=== PATIENT | male | born 1950 | race African-American/Black ===

== ENCOUNTER 2016-08-22 05:02 | Inpatient (IN) | payer MEDICARE, MEDICAID ==
[~2016-08-22] VITALS: Ht 185.4 cm; Wt 85.3 kg
[~2016-08-22 05:02] MED LIST: AMLO10TA4 PO; GLYB5TAB7 PO; METF1000 PO
[2016-08-22] MEDS ORDERED: FUROSEMIDE 40MG/4ML VIAL IV STA (07:13)
[2016-08-22 07:26] LABS: BASOPHILS % 0.6 % (0.0-2.0); EOSINOPHILS % 3.6 % (0.0-5.0); HEMATOCRIT. 25.2 % (42.0-52.0); HEMOGLOBIN. 8.1 g/dL (14.0-18.0); LYMPHOCYTES % 20.1 % (20.0-50.0); MEAN CORPUSCULAR VOLUME 84.3 fL (80.0-94.0); MEAN PLATELET VOLUME 8.5 fl (7.4-10.4); MONOCYTES % 8.6 % (2.0-8.0); NEUTROPHILS % 67.1 % (40.0-76.0); PLATELET 80 x1000/uL (130-400); RED BLOOD CELL COUNT 2.99 mill/uL (4.7-6.1); RED CELL DISTRIBUTION WIDTH 18.6 % (11.6-14.6)
[2016-08-22 07:36] LABS: INR 1.2; PARTIAL THROMBOPLASTIN TIME 29.7 sec (24.0-34.0); PROTHROMBIN TIME 12.8 sec
[2016-08-22 07:38] LABS: CARBON DIOXIDE 23 mEq/L (21-32); CHLORIDE 117 mEq/L (98-107)
[2016-08-22 07:43] LABS: CREATINE KINASE 134 IU/L (39-308); CREATINE KINASE MB FRACTION 2.8 ng/mL (0.5-3.6); TROPONIN I < 0.02 ng/mL (0.00-0.04)
[2016-08-22] MEDS ORDERED: ONDANSETRON HCL 4MG/2ML VIAL IV PRN (09:30)
[2016-08-22] MEDS ORDERED: ACETAMINOPHEN 325MG TABLET PO PRN (09:30)
[2016-08-22] MEDS ORDERED: IPRATROPIUM/ALBUTEROL 0.5-3(2.5)MG/3ML NEB INH PRN (09:30)
[2016-08-22] MEDS ORDERED: DEXTROSE 50% WATER 50ML SYRINGE IV PRN (09:30)
[2016-08-22] MEDS ORDERED: DOCUSATE SODIUM 100MG CAPSULE PO PRN (09:30)
[2016-08-22 09:54] LABS: CLARITY URINE CLOUDY (CLEAR); COLOR URINE YELLOW (YELLOW); GLUCOSE URINE NEGATIVE (NEGATIVE); KETONES URINE NEGATIVE (NEGATIVE); LEUKOCYTE ESTERASE URINE 3+ (NEGATIVE); NITRITE URINE POSITIVE (NEGATIVE); OCCULT BLOOD URINE 2+ (NEGATIVE); PROTEIN URINE 3+ (NEGATIVE); SPECIFIC GRAVITY URINE 1.019 (1.005-1.030); UROBILINOGEN URINE 0.2 E.U./dL (0.2-1.0)
[2016-08-22 10:16] LABS: ETHANOL BLOOD < 10 mg/dL; TOTAL IRON BINDING CAPACITY 287 ug/dL (250-450)
[2016-08-22 10:19] LABS: *AMPHETAMINES SCREEN URINE NEGATIVE (NEGATIVE); *BARBITURATES SCREEN URINE NEGATIVE (NEGATIVE); *BENZODIAZEPINES SCREEN URINE NEGATIVE (NEGATIVE); *COCAINE SCREEN URINE NEGATIVE (NEGATIVE); CANNABINOID URINE SCREEN NEGATIVE (NEGATIVE); METHADONE URINE SCREEN NEGATIVE (NEGATIVE); OPIATES URINE SCREEN PRESUMTIVE POSITIVE (NEGATIVE); PHENCYCLIDINE URINE SCREEN NEGATIVE (NEGATIVE)
[2016-08-22 10:57] VITALS: BP 162/91
[2016-08-22 11:06] VITALS: BP 162/91
[2016-08-22] MEDS ORDERED: COR12 PO (11:37)
[2016-08-22] MEDS ORDERED: CLOP75TA33 PO (11:38)
[2016-08-22] MEDS ORDERED: ISOS60TA4 PO (11:39)
[2016-08-22] MEDS ORDERED: ZOLP10TA6 PO (11:41)
[2016-08-22] MEDS ORDERED: ASPI-1159 PO (11:42)
[2016-08-22] MEDS ORDERED: LOSA100T14 PO (11:43)
[2016-08-22] MEDS ORDERED: FERR-63 PO (11:44)
[2016-08-22] MEDS ORDERED: TRAMADOL 50MG TABLET PO SCH (11:45)
[2016-08-22] MEDS ORDERED: ROSU20TA PO (11:45)
[2016-08-22] MEDS ORDERED: LINA5TAB PO (11:46)
[2016-08-22] MEDS ORDERED: SPIR25TA4 PO (11:47)
[2016-08-22] MEDS ORDERED: TRAM50TA3 PO (11:47)
[2016-08-22] MEDS ORDERED: linaclotide PO (11:49)
[2016-08-22 11:50] LABS: HEPATITIS B SURFACE ANTIGEN NEGATIVE
[2016-08-22 12:18] LABS: HEPATITIS B CORE AB IGM NEGATIVE
[2016-08-22 12:19] LABS: HEPATITIS A AB IGM NEGATIVE (NEGATIVE)
[2016-08-22 12:26] LABS: FERRITIN 78 ng/mL (22-322)
[2016-08-22] MEDS: CLOPIDOGREL 75MG TABLET PO SCH (12:30)
[2016-08-22] MEDS: ASPIRIN 81MG EC TABLET PO SCH ×2 (12:30→13:31)
[2016-08-22] MEDS: BLOOD SUGAR DIAGNOSTIC STRIP TEST SCH ×3 (13:02→21:17)
[2016-08-22] MEDS: INSULIN LISPRO 100 UNITS/ML SUBCUT SCH ×3 (13:10→21:00)
[2016-08-22] MEDS: AMLODIPINE 10MG TABLET PO SCH (13:30)
[2016-08-22] MEDS: LINAGLIPTIN 5MG TABLET PO SCH (13:30)
[2016-08-22] MEDS: TRAMADOL 50MG TABLET PO PRN (13:31)
[2016-08-22] MEDS: FERROUS SULFATE 325MG TABLET PO SCH ×2 (13:31→16:27)
[2016-08-22] MEDS: SENNOSIDES/DOCUSATE SOD 8.6/50MG TABLET PO SCH (13:31)
[2016-08-22] MEDS: LOSARTAN POTASSIUM 100 MG TABLET PO SCH (13:31)
[2016-08-22 16:00] VITALS: BP 160/87
[2016-08-22] MEDS: FUROSEMIDE 40MG/4ML VIAL IVP SCH (16:27)
[2016-08-22] MEDS: CARVEDILOL 12.5MG TABLET PO SCH (16:28)
[2016-08-22] MEDS: LINZESS 145 MCG CAPSULE PO SCH (16:28)
[2016-08-22] MEDS: ISOSORBIDE MONONITRATE 60MG TABLET SR 24HR PO SCH (16:28)
[2016-08-22] MEDS: CRESTOR 20 MG PO SCH (16:29)
[2016-08-22] MEDS: IPRATROPIUM/ALBUTEROL 0.5-3(2.5)MG/3ML NEB INH SCH ×2 (16:35→20:27)
[2016-08-22] MEDS ORDERED: MEDICATION NOT ON FORMULARY EA (Zolpidem Tartrate 10 MG) PO SCH (17:00)
[2016-08-22] MEDS ORDERED: MEDICATION NOT ON FORMULARY EA (Zolpidem Tartrate 10 MG) PO PRN (17:00)
[2016-08-22] MEDS ORDERED: FERROUS SULFATE 325MG TABLET PO SCH (17:00)
[2016-08-22] MEDS ORDERED: SPIRONOLACTONE 25MG TABLET PO SCH (17:15)
[2016-08-22 20:00] VITALS: BP 176/98
[2016-08-22] MEDS ORDERED: ZOLPIDEM TARTRATE 5MG TABLET PO PRN ×2 (21:00)
[2016-08-22] MEDS: FAMOTIDINE 20MG TABLET PO SCH (21:21)
[2016-08-22] MEDS: LEVOFLOXACIN 250MG TABLET PO SCH (23:11)
[2016-08-23] VITALS (10 sets, daily range): BP systolic 152–188; BP diastolic 84–112
[2016-08-23] MEDS: TRAMADOL 50MG TABLET PO PRN (00:32)
[2016-08-23] MEDS: ENALAPRIL 2.5MG/2ML VIAL 2ML IV PRN ×2 (00:33→13:16)
[2016-08-23] MEDS: IPRATROPIUM/ALBUTEROL 0.5-3(2.5)MG/3ML NEB INH SCH ×4 (01:43→21:34)
[2016-08-23] MEDS: BLOOD SUGAR DIAGNOSTIC STRIP TEST SCH ×4 (06:02→21:33)
[2016-08-23 06:53] LABS: BASOPHILS % 0.4 % (0.0-2.0); EOSINOPHILS % 2.1 % (0.0-5.0); HEMATOCRIT. 24.2 % (42.0-52.0); HEMOGLOBIN. 7.7 g/dL (14.0-18.0); MEAN CORPUSCULAR HEMOGLOBIN 27.4 pg (28.0-32.0); MEAN CORPUSCULAR VOLUME 85.5 fL (80.0-94.0); MEAN PLATELET VOLUME 9.9 fl (7.4-10.4); MONOCYTES % 9.1 % (2.0-8.0); NEUTROPHILS % 71.4 % (40.0-76.0); PLATELET 75 x1000/uL (130-400); RED BLOOD CELL COUNT 2.83 mill/uL (4.7-6.1); RED CELL DISTRIBUTION WIDTH 18.6 % (11.6-14.6)
[2016-08-23 07:22] LABS: PHOSPHORUS 3.7 mg/dL (2.5-4.9); T4 FREE 1.44 ng/dL (0.76-1.46)
[2016-08-23] MEDS: INSULIN LISPRO 100 UNITS/ML SUBCUT SCH ×4 (07:22→21:00)
[2016-08-23] MEDS: ASPIRIN 81MG EC TABLET PO SCH (07:29)
[2016-08-23] MEDS: CLOPIDOGREL 75MG TABLET PO SCH (07:30)
[2016-08-23] MEDS ORDERED: SODIUM POLYSTYRENE SULFONATE 15 G/60 ML BOT PO NR (07:45)
[2016-08-23] MEDS: LINAGLIPTIN 5MG TABLET PO SCH (08:54)
[2016-08-23] MEDS: FUROSEMIDE 40MG/4ML VIAL IVP SCH ×2 (08:54→17:03)
[2016-08-23] MEDS: LOSARTAN POTASSIUM 100 MG TABLET PO SCH (08:54)
[2016-08-23] MEDS: FERROUS SULFATE 325MG TABLET PO SCH ×3 (08:54→18:29)
[2016-08-23] MEDS: SENNOSIDES/DOCUSATE SOD 8.6/50MG TABLET PO SCH (08:54)
[2016-08-23] MEDS: CARVEDILOL 12.5MG TABLET PO SCH ×2 (08:55→17:04)
[2016-08-23] MEDS: AMLODIPINE 10MG TABLET PO SCH (08:55)
[2016-08-23] MEDS: ISOSORBIDE MONONITRATE 60MG TABLET SR 24HR PO SCH ×2 (08:56→17:03)
[2016-08-23] MEDS: LINZESS 145 MCG CAPSULE PO SCH (09:00)
[2016-08-23] MEDS: CRESTOR 20 MG PO SCH (09:09)
[2016-08-23] MEDS: FAMOTIDINE 20MG TABLET PO SCH (09:09)
[2016-08-23] MEDS ORDERED: HYDROCODONE/ACETAMINOPHEN 5/325MG TABLET PO PRN (12:15)
[2016-08-23] MEDS: LEVOFLOXACIN 250MG TABLET PO SCH (12:19)
[2016-08-23] MEDS: PANTOPRAZOLE SODIUM 40 MG/VIAL IV SCH ×2 (12:20→17:03)
[2016-08-23] MEDS: HYDRALAZINE HCL 50MG TABLET PO SCH ×2 (13:18→21:32)
[2016-08-23] MEDS: SILVER SULFADIAZINE 1% CREAM 50GM TOP SCH (17:05)
[2016-08-24] VITALS: BP 164/112
[2016-08-24] MEDS: ENALAPRIL 2.5MG/2ML VIAL 2ML IV PRN (00:23)
[2016-08-24] MEDS: IPRATROPIUM/ALBUTEROL 0.5-3(2.5)MG/3ML NEB INH SCH ×3 (02:29→13:03)
[2016-08-24 04:00] VITALS: BP 180/120
[2016-08-24] MEDS: FUROSEMIDE 40MG/4ML VIAL IVP SCH ×2 (05:27→17:04)
[2016-08-24] MEDS: BLOOD SUGAR DIAGNOSTIC STRIP TEST SCH ×3 (05:28→17:04)
[2016-08-24] MEDS: HYDRALAZINE HCL 50MG TABLET PO SCH (05:28)
[2016-08-24 06:19] VITALS: BP 170/103
[2016-08-24 06:44] LABS: BASOPHILS % 0.4 % (0.0-2.0); EOSINOPHILS % 2.1 % (0.0-5.0); HEMATOCRIT. 26.2 % (42.0-52.0); HEMOGLOBIN. 8.7 g/dL (14.0-18.0); LYMPHOCYTES % 19.2 % (20.0-50.0); MEAN CORPUSCULAR HEMOGLOBIN 27.9 pg (28.0-32.0); MEAN CORPUSCULAR VOLUME 83.8 fL (80.0-94.0); MEAN PLATELET VOLUME 9.9 fl (7.4-10.4); MONOCYTES % 9.1 % (2.0-8.0); NEUTROPHILS % 69.2 % (40.0-76.0); PLATELET 70 x1000/uL (130-400); RED BLOOD CELL COUNT 3.12 mill/uL (4.7-6.1); RED CELL DISTRIBUTION WIDTH 17.7 % (11.6-14.6)
[2016-08-24] MEDS: INSULIN LISPRO 100 UNITS/ML SUBCUT SCH ×3 (07:46→17:04)
[2016-08-24] MEDS: LINZESS 145 MCG CAPSULE PO SCH (07:46)
[2016-08-24 08:00] VITALS: BP 177/96
[2016-08-24] MEDS: PANTOPRAZOLE SODIUM 40 MG/VIAL IV SCH (08:54)
[2016-08-24] MEDS: LOSARTAN POTASSIUM 100 MG TABLET PO SCH (08:54)
[2016-08-24] MEDS: FERROUS SULFATE 325MG TABLET PO SCH ×3 (08:54→17:04)
[2016-08-24] MEDS: LINAGLIPTIN 5MG TABLET PO SCH (08:54)
[2016-08-24] MEDS: CRESTOR 20 MG PO SCH (08:54)
[2016-08-24] MEDS: CARVEDILOL 12.5MG TABLET PO SCH ×2 (08:55→15:28)
[2016-08-24] MEDS: SILVER SULFADIAZINE 1% CREAM 50GM TOP SCH (08:55)
[2016-08-24] MEDS: SENNOSIDES/DOCUSATE SOD 8.6/50MG TABLET PO SCH (08:55)
[2016-08-24] MEDS: AMLODIPINE 10MG TABLET PO SCH (08:55)
[2016-08-24] MEDS: ISOSORBIDE MONONITRATE 60MG TABLET SR 24HR PO SCH ×2 (08:55→15:29)
[2016-08-24] MEDS ORDERED: ASPIRIN 81MG EC TABLET PO SCH (11:15)
[2016-08-24] MEDS ORDERED: NIFEDIPINE XL 60MG TAB PO SCH (11:15)
[2016-08-24] MEDS ORDERED: CLOPIDOGREL 75MG TABLET PO SCH (11:15)
[2016-08-24] MEDS: LEVOFLOXACIN 250MG TABLET PO SCH (11:44)
[2016-08-24 12:00] VITALS: BP 177/110
[2016-08-24] MEDS ORDERED: HYDRALAZINE HCL 50MG TABLET PO SCH (14:00)
[2016-08-24 16:00] VITALS: BP 177/121
[2016-08-24] MEDS ORDERED: METOLAZONE 2.5MG TABLET PO SCH (18:00)
[2016-08-25 14:28] LABS: A/G RATIO 0.7 (0.7-1.7); ALBUMIN 2.9 g/dL (2.9-4.4); ALPHA-1-GLOBULIN 0.2 g/dL (0.0-0.4); ALPHA-2-GLOBULIN 0.6 g/dL (0.4-1.0); BETA GLOBULIN 0.9 g/dL (0.7-1.3); GAMMA GLOBULINS 2.2 g/dL (0.4-1.8); GLOBULIN TOTAL 3.9 g/dL (2.2-3.9); M-SPIKE 0.4 g/dL (Not Observed); TOTAL PROTEIN SERUM 6.8 g/dL (6.0-8.5)
== END 2016-08-24 19:35 | disposition left against medical advice (07) | DRG 682 ==
LOC: ER 05:06 → 7WST 08:05 → EDBEDREQ 08:07 → SUPCPDRO 08:53 → ENRESERV 09:00 → 7WST 14:54
PROVIDERS: ADMIT Family Medicine Adult Medicine; ATTEND Family Medicine Adult Medicine
PROC: 30233N1 Transfusion of Nonautologous Red Blood Cells into Peripheral Vein, Percutaneous Approach (ICD-10-PCS; principal; 2016-08-23)
DX: N17.9 Acute kidney failure, unspecified (principal); I50.43 Acute on chronic combined systolic (congestive) and diastolic (congestive) heart failure; J96.00 Acute respiratory failure, unspecified whether with hypoxia or hypercapnia; I13.0 Hypertensive heart and chronic kidney disease with heart failure and stage 1 through stage 4 chronic kidney disease, or unspecified chronic kidney disease; E44.0 Moderate protein-calorie malnutrition; D61.818 Other pancytopenia; N39.0 Urinary tract infection, site not specified; E87.2 Acidosis; I42.0 Dilated cardiomyopathy; N18.9 Chronic kidney disease, unspecified; D63.8 Anemia in other chronic diseases classified elsewhere; E11.40 Type 2 diabetes mellitus with diabetic neuropathy, unspecified; D50.9 Iron deficiency anemia, unspecified; I27.2 Other secondary pulmonary hypertension; B18.2 Chronic viral hepatitis C; B96.20 Unspecified Escherichia coli [E. coli] as the cause of diseases classified elsewhere; E03.9 Hypothyroidism, unspecified; E11.21 Type 2 diabetes mellitus with diabetic nephropathy; E11.22 Type 2 diabetes mellitus with diabetic chronic kidney disease; E78.5 Hyperlipidemia, unspecified; E87.5 Hyperkalemia; I25.10 Atherosclerotic heart disease of native coronary artery without angina pectoris; M19.90 Unspecified osteoarthritis, unspecified site; J44.9 Chronic obstructive pulmonary disease, unspecified; N50.89 Other specified disorders of the male genital organs; Z53.21 Procedure and treatment not carried out due to patient leaving prior to being seen by health care provider; Z68.24 Body mass index [BMI] 24.0-24.9, adult; Z95.5 Presence of coronary angioplasty implant and graft; Z79.899 Other long term (current) drug therapy; Z79.02 Long term (current) use of antithrombotics/antiplatelets; Z79.82 Long term (current) use of aspirin; Z79.84 Long term (current) use of oral hypoglycemic drugs
CPT/HCPCS: 36415; 36430; 71010; 76705; 76870; 78582; 80048; 80053; 80061; 80305; 81001; 82270; 82550; 82553; 82728; 82962; 83540; 83550; 83690; 83735; 84100; 84132; 84155; 84165; 84439; 84443; 84481; 84484; 85025; 85044; 85610; 85730; 86705; 86709; 86803; 86850; 86900; 86920; 87040; 87077; 87086; 87186; 87340; 87536; 93005; 93306; 93970; 93971; 93976; 94640; 96374; 97162; 99285; A6261; A9558; C9113; G0482; J1940; J3490; J7050; J7620; P9016

== ENCOUNTER 2016-09-19 19:38 | Emergency (ER) | payer MEDICAID, MEDICARE ==
[~2016-09-19] VITALS: Ht 175.3 cm; Wt 75.0 kg
[~2016-09-19 19:38] MED LIST changes: +ASPI-1159 PO; +CLOP75TA33 PO; +COR12 PO; +FERR-63 PO; -GLYB5TAB7 PO; +ISOS60TA4 PO; +LINA5TAB PO; +LOSA100T14 PO; -METF1000 PO; +ROSU20TA PO; +SPIR25TA4 PO; +TRAM50TA3 PO; +ZOLP10TA6 PO; +linaclotide PO
[2016-09-19 19:40] VITALS: BP 142/69
[2016-09-19] MEDS ORDERED: ACETAMINOPHEN 325MG TABLET PO ONE (21:15)
== END 2016-09-19 22:00 | disposition left against medical advice (07) ==
LOC: ER 20:26
DX: R50.9 Fever, unspecified (principal); I11.9 Hypertensive heart disease without heart failure; E11.9 Type 2 diabetes mellitus without complications; I25.2 Old myocardial infarction; Z95.1 Presence of aortocoronary bypass graft; Z95.5 Presence of coronary angioplasty implant and graft; Z79.82 Long term (current) use of aspirin; Z79.899 Other long term (current) drug therapy; F91.8 Other conduct disorders; Z99.3 Dependence on wheelchair
CPT/HCPCS: 99283